=== PATIENT | female | born 1955 | race Caucasian/White ===

== ENCOUNTER 2017-11-15 11:53 | Inpatient (IN) | payer OTHER ==
[~2017-11-15] VITALS: Ht 167.6 cm; Wt 46.3 kg
--- NOTE | 2017-11-15 13:20 | ED UPPER/LOWER EXTREMITY COMPL ---
History of Present Illness General Chief Complaint: Shoulder Injury Stated Complaint: L SHOULDER INJURY S/P FALL XTHIS AM Source: patient, family Exam Limitations: no limitations Vital Signs & Intake/Output Vital Signs & Intake/Output Vital Signs Date Time Temp Pulse Resp B/P B/P Pulse O2 O2 Flow FiO2 Mean Ox Delivery Rate 11/15 1528 98.7 66 18 171/94 98 Room Air 11/15 1200 97.0 64 18 169/92 98 Room Air Allergies Uncoded Allergies: CT IODINE CONTRAST (HIVES 11/15/17) Reconcile Medications Alprazolam 0.5 MG TABLET 1 TAB PO BIDP PRN ANXIETY (Reported) Lisinopril 40 MG TABLET 1 TAB PO DAILY HEART (Reported) Metoprolol Tartrate 25 MG TABLET 1 TAB PO BID HEART (Reported) Zolpidem Tartrate 10 MG TABLET 1 TAB PO QPM SLEEP (Reported) Triage Note: PT TO ED C/O LEFT SHOULDER/HUMERAL PAIN S/P "BLACKING OUT" THIS AM. PT REQUESTING ETOH DETOX. DENIES SI/HI. STATES DRINKS 1 PINT OF VODKA DAILY. HAS BEEN DRINKING AT THAT RATE FOR "QUITE A WHILE" :YEARS. LAST DRINK WAS YESTERDAY EARLY AFTERNOON. STATES STOPPED "RECENTLY" BUT IT DIDN'T LAST LONG. PER SPOUSE THIS WAS IN MAY 2013, HAD 21 DAYS SOBER. Triage Nurses Notes Reviewed? yes Onset: Abrupt Duration: constant Timing: single episode today Severity: severe Severity Numbers: 7 Method of Injury: direct blow, fall HPI: Patient is a 62-year-old male with a past medical history of remote gastric/ stomach cancer and MULTIPLE recurrence of lung cancer currently patient is receiving infusions of Avastin, alcohol dependency and osteoporosis, who presents emergency room stating that yesterday evening patient after drinking alcohol approximately 1 pint she states that approximately 3 AM patient got up from the bed to use the restroom where then she fell to the ground however patient does not recall how she fell OR WHAT EXACTLY HAPPENED TO MAKE PT FALL, BUT she had acute onset of left lateral shoulder pain FROM THE EVENT. Patient is unsure whether or not she hit her head denies any current neck pain or back pain however complains of left lateral shoulder and upper arm pain and swelling with bruising. The who is present states that she did not Past History Travel History Traveled to [place] past 21 day No Medical History Any Pertinent Medical History? see below for history Neurological: NONE EENT: NONE Cardiovascular: NONE Respiratory: NONE Gastrointestinal: NONE Hepatic: NONE Renal: NONE Musculoskeletal: osteoporosis Psychiatric: alcohol dependence Cancer(s): lung cancer, GASTRIC LYMPHOMA Surgical History Surgical History: non-contributory Psychosocial History What is your primary language Occitan Tobacco Use: Quit >30 days ago ETOH Use: alcoholic Illicit Drug Use: denies illicit drug use Family History Hx Contributory? No Review of Systems Review of Systems Constitutional: Reports: no symptoms. EENTM: Reports: no symptoms. Respiratory: Reports: no symptoms. Cardiovascular: Reports: no symptoms. Gastrointestinal/Abdominal: Reports: no symptoms. Genitourinary: Reports: no symptoms. Musculoskeletal: Reports: see HPI. Skin: Reports: see HPI. Neurological/Psychological: Reports: no symptoms. Hematologic/Endocrine: Reports: no symptoms. Immunological: Reports: no symptoms. All Other Systems: Reviewed and Negative Physical Exam Physical Exam General Appearance: no apparent distress, alert, comfortable Head: atraumatic Eyes: Bilateral: normal appearance, PERRL, EOMI. Ears, Nose, Throat: normal pharynx, normal ENT inspection, hearing grossly normal Neck: normal inspection, supple, no midline tenderness Cardiovascular/Respiratory: normal breath sounds, normal peripheral pulses, regular rate/rhythm, no respiratory distress Peripheral Pulses: 2+ dorsalis pedis (R), 2+ dorsalis pedis (L) Gastrointestinal: NONTENDER ABDOMEN Back: normal inspection Neurologic/Tendon: normal sensation, normal motor functions, normal tendon functions, responds to pain, no evidence tendon injury, no pulse deficit Skin: intact Diagram Shoulders Front/Back 1) 2) Noted point tenderness ecchymosis and swelling skin intact Nontender elbow Nontender wrist Dermatomes intact Progress Differential Diagnosis: arterial insufficiency, compartment syndrome, contusion, dislocation, DVT, fracture, septic arthritis, sprain, tendon injury Plan of Care: Orders Procedure Date/time Status Regular Diet 11/16 B Active Regular Diet 11/15 D Complete Misc Message 11/15 1708 Active ED Holding Orders 11/15 1708 Active Admit to inpatient 11/15 1708 Active Vital Signs 11/15 1708 Active Code Status 11/15 1708 Active Patient Data 11/15 1657 Active Add-on Test (ER Only) 11/15 1645 Active CIWA 11/15 1645 Active Add-on Test (ER Only) 11/15 1518 Active MAGNESIUM 11/15 1502 Complete ETHANOL 11/15 1502 Complete COMPREHENSIVE METABOLIC PANEL 11/15 1424 Complete CBC WITHOUT DIFFERENTIAL 11/15 1424 Complete EKG 11/15 1424 Active Durable Medical Equipment 11/15 1157 Active Laboratory Tests 11/15/17 1502: Anion Gap 13, Estimated GFR > 60, BUN/Creatinine Ratio 35.0 H, Glucose 109 H, Calcium 8.7, Magnesium 1.8, Total Bilirubin 1.3, AST 76 H, ALT 52, Alkaline Phosphatase 96, Total Protein 7.1, Albumin 3.9, Globulin 3.2, Albumin/Globulin Ratio 1.2, CBC w Diff MAN DIFF ORDERED, RBC 3.40 L, MCV 101.6 H, MCH 34.6 H, RDW 15.8 H, MPV 8.1, Gran % 73.5, Lymphocytes % 16.0 L, Monocytes % 10.5 H, Eosinophils % 0, Basophils % 0, Absolute Granulocytes 4.3, Segmented Neutrophils 82 H, Absolute Lymphocytes 0.9 L, Lymphocytes 9 L, Monocytes 9, Absolute Monocytes 0.6, Absolute Eosinophils 0, Absolute Basophils 0, Nucleated RBCs 1 H , Platelet Estimate ADEQUATE, Normochromic RBCs VERIFIED, Macrocytic Cells 1+, PUBS MCHC 34.1, Serum Alcohol < 10.0 11/15/17 1427: Troponin I Cancelled Differential diagnosis includes local dependency electrolyte abnormality pancreatitis Patient has no central spinous tenderness CT scan of head and cervical spine are unremarkable patient does have noted left comminuted humeral fracture in which initially on arrival patient had a left shoulder immobilizer placed pre-and post -neurovascular was intact, patient however hasn't unknown etiology of fall and suspecting syncopal episode in which it is noted the patient does have hyponatremia at 127 Patient will be advised to be admitted for concerns of hyponatremia, SUSPECTNG SYNCOPAL/LOC episode, alcohol dependency and left comminuted humeral fracture Patient also requires close monitoring of alcohol dependency no history of delirium tremens or alcohol withdrawal seizures Discussed disposition plan with patient and family who agree Diagnostic Imaging: Viewed by Me: Radiology Read. Radiology Impression: acute abnormality, fracture Initial ED EKG: NSR 65 BPM Comments: PATIENT: LUISA IQBAL PRESENT AGE: 62 PATIENT ACCOUNT NO: [id number] : 53 LOCATION: ER ORDERING PHYSICIAN: Tani MANN SERVICE DATE: 11/15/17 EXAM TYPE: CAT - CT CERV SPINE WO IV CONTRAST; CT HEAD WO IV CONTRAST CT HEAD WITHOUT IV CONTRAST CT CERVICAL SPINE WITHOUT IV CONTRAST INDICATION: Fall. Possible alcohol. COMPARISON: None available. TECHNIQUE: Multidetector CT acquisitions of the head and cervical spine were obtained without IV contrast. Multiplanar reformats were acquired and utilized for image interpretation. FINDINGS: HEAD: Mild chronic microangiopathy and global cerebral volume loss. There is no intracranial hemorrhage, hydrocephalus, extra-axial surface collection, midline shift, or other herniation pattern. Seay to white matter differentiation is diffusely maintained without evidence of an evolved acute territorial infarct. The basilar cisterns are preserved. No significant soft tissue abnormality. No acute osseous abnormality. The paranasal sinuses and the mastoid air cells are well-aerated. CERVICAL SPINE: There is anatomic alignment of the vertebral bodies and posterior elements. There is no acute fracture and there is no acute subluxation. There is moderate to severe disc volume loss with endplate osteophytosis at C4-C5 and C5-C6 and there is mild to moderate disc volume loss at C6-C7. Uncovertebral joint hypertrophy and hypertrophic facet arthropathy result in moderate to severe bilateral foraminal stenosis at all these levels. The craniocervical and atlantoaxial articulations are normal. There is no prevertebral soft tissue swelling. There is a 7 mm calcification within the right thyroid lobe. Opacity at the right greater than left lung apex, most likely pleural parenchymal scarring. IMPRESSION: 1. No acute intracranial abnormality. Mild chronic microangiopathy and global cerebral volume loss. 2. No acute osseous abnormality within the cervical spine. Cervical spondylosis as described. DICTATED BY: Cruz Melton MD DATE/TIME DICTATED:11/15/171451 PATIENT: LUISA IQBAL PRESENT AGE: 62 PATIENT ACCOUNT NO: [id number] : 53 LOCATION: [facility] ORDERING PHYSICIAN: Cruz Enriquez MD SERVICE DATE: 11/15/17120 EXAM TYPE: RAD - XRY-SHOULDER COMPLETE-LEFT EXAMINATION: XR SHOULDER, LEFT CLINICAL INFORMATION: Left shoulder pain with movement. Status post fall. Evaluate for left shoulder fracture. COMPARISON: None TECHNIQUE: AP, Grashey, and scapular Y views of the left shoulder. FINDINGS: There is a comminuted fracture of the left proximal humerus which predominantly involves the surgical neck with probable extension to the greater tuberosity. There is mild medial and moderate anterior displacement of the major distal fracture fragment. There is a small butterfly fragment which is medially displaced. There is no definite dislocation but views are limited. IMPRESSION: Comminuted fracture of the left proximal humerus with displacement as described above. DICTATED BY: Jordon Yusuf MD Departure Departure Disposition: STILL A PATIENT Condition: Stable Clinical Impression Primary Impression: Hyponatremia Secondary Impressions: Alcohol dependence, Fall, Proximal humeral fracture, Syncope Referrals: Betty HOLLIDAY,Manuel Polanco (PCP/Family) Departure Forms: Customer Survey General Discharge Information Admission Note Spoke With: Elvie Barksdale MD Documentation of Exam: Documentation of any treatments & extenuating circumstances including Concerns Regarding Discharge (functional status, medication knowledge or non-compliance, living conditions, etc.) that warrant an admission rather than observation: [ Discussed patient with who agrees with telemetry admission for concerns of hyponatremia suspecting loss of consciousness or syncopal episode patient requires pain management with orthopedic consultation repeat labs telemetry monitoring establishing her etiology of hyponatremia possible fluid replenishment or restriction, and alcohol withdrawal monitor] Critical Care Note Critical Care Note Critical Care Time: 30-74 min
--- NOTE | 2017-11-15 13:36 | RADIOLOGY REPORT ---
EXAMINATION: XR SHOULDER, LEFT CLINICAL INFORMATION: Left shoulder pain with movement. Status post fall. Evaluate for left shoulder fracture. COMPARISON: None TECHNIQUE: AP, Grashey, and scapular Y views of the left shoulder. FINDINGS: There is a comminuted fracture of the left proximal humerus which predominantly involves the surgical neck with probable extension to the greater tuberosity. There is mild medial and moderate anterior displacement of the major distal fracture fragment. There is a small butterfly fragment which is medially displaced. There is no definite dislocation but views are limited. IMPRESSION: Comminuted fracture of the left proximal humerus with displacement as described above.
[2017-11-15] MEDS ORDERED: LISINOPRIL40 M1 PO (14:55)
[2017-11-15] MEDS ORDERED: METOPROLOL TART25 M1 PO (14:56)
[2017-11-15] MEDS ORDERED: ZOLPIDEM TARTRA10 M1 PO (14:56)
[2017-11-15] MEDS ORDERED: ALPRAZOLAM0.5 M4 PO (14:56)
--- NOTE | 2017-11-15 15:09 | CT SCAN REPORT ---
CT HEAD WITHOUT IV CONTRAST CT CERVICAL SPINE WITHOUT IV CONTRAST INDICATION: Fall. Possible alcohol. COMPARISON: None available. TECHNIQUE: Multidetector CT acquisitions of the head and cervical spine were obtained without IV contrast. Multiplanar reformats were acquired and utilized for image interpretation. FINDINGS: HEAD: Mild chronic microangiopathy and global cerebral volume loss. There is no intracranial hemorrhage, hydrocephalus, extra-axial surface collection, midline shift, or other herniation pattern. Seay to white matter differentiation is diffusely maintained without evidence of an evolved acute territorial infarct. The basilar cisterns are preserved. No significant soft tissue abnormality. No acute osseous abnormality. The paranasal sinuses and the mastoid air cells are well-aerated. CERVICAL SPINE: There is anatomic alignment of the vertebral bodies and posterior elements. There is no acute fracture and there is no acute subluxation. There is moderate to severe disc volume loss with endplate osteophytosis at C4-C5 and C5-C6 and there is mild to moderate disc volume loss at C6-C7. Uncovertebral joint hypertrophy and hypertrophic facet arthropathy result in moderate to severe bilateral foraminal stenosis at all these levels. The craniocervical and atlantoaxial articulations are normal. There is no prevertebral soft tissue swelling. There is a 7 mm calcification within the right thyroid lobe. Opacity at the right greater than left lung apex, most likely pleural parenchymal scarring. IMPRESSION: 1. No acute intracranial abnormality. Mild chronic microangiopathy and global cerebral volume loss. 2. No acute osseous abnormality within the cervical spine. Cervical spondylosis as described.
[2017-11-15 15:16] LABS: ABSOLUTE BASOPHIL COUNT 0 /CUMM (0.0-0.2); ABSOLUTE EOSINOPHIL COUNT 0 /CUMM (0.0-0.7); ABSOLUTE GRANULOCYTE CT 4.3 /CUMM (1.4-6.5); ABSOLUTE LYMPH COUNT 0.9 /CUMM (1.2-3.4); ABSOLUTE MONOCYTE COUNT 0.6 /CUMM (0.10-0.60); BASOPHIL % 0 % (0.0-2.0); EOSINOPHIL % 0 % (0-5); GRANULOCYTE % 73.5 % (42.2-75.2); HEMATOCRIT 34.6 % (37-47); MEAN CORPUSCULAR HGB 34.6 PG (27.0-31.0); MEAN CORPUSCULAR HGB CONC 34.1 G/DL (33.0-37.0); MEAN CORPUSCULAR VOLUME 101.6 FL (81.0-99.0); MEAN PLATELET VOLUME 8.1 FL (7.4-10.4); PLATELET COUNT 311 /CUMM (130-400); RBC DISTRIBUTION WIDTH 15.8 % (11.5-14.5); WHITE BLOOD CELL COUNT 5.8 /CUMM (4.8-10.8)
[2017-11-15 17:20] VITALS: BP 154/84
--- NOTE | 2017-11-15 18:16 | History & Physical ---
See Addendum Christian HOLLIDAY,Emily 11/15/17 1281: General Information and HPI MD Statement: I have seen and personally examined LUISA IQBAL and documented this H&P. The patient is a 62 year old F who presented with a patient stated chief complaint of [fall]. Source of Information: patient Exam Limitations: no limitations History of Present Illness: The patient is a 62-year-old female with past medical history of gastric lymphoma status post partial gastrectomy, recurrent lung cancer on Avastin, alcoholism and osteoporosis. The patient presented to [facility] on 11/15 with complaint of fall. Patient was in usual state of health until this morning when she suffered a fall around 3 AM in the morning while going to the restroom. As per patient she lost consciousness for a few seconds and everything became dark. She was little bit confused after the episode but became oriented little later. She did not hit her head she landed on her left shoulder. There was no seizure-like activity. No bowel or urinary incontinence. No tongue bite. Patient did not experience any chest pain or palpitations or any other prodromal symptoms. Of note patient has been battling alcoholism and has been to rehabilitation multiple times, last visit was 3 years ago for 3 weeks. Patient admits to drinking 1 pint of vodka everyday. Patient started drinking yesterday early afternoonand continued into the evening. She has never been hospitalized for alcohol withdrawal, never experienced delirium tremors or intubation. Currently patient is complaining of 9 out of 10 pain in left shoulder and arm, sharp on movement and dull at rest pain. It's a constant pain that is aggravated by movement motion and relieved by staying still. Nonradiating. Patient tried ibuprofen 3 x 200 mg which did not help much. Of note patient suffered a fall 5 weeks ago after tripping over a rug at night while going to the bathroom and had fracture of L1. Patient has history of osteoporosis has tried Phosphmax which she discontinued because of nausea and headaches. Currently she is considering IV prolia for osteoporosis and is being treated by her oncologist Dr.Anamika nunez in [place]. Current status of her lung cancer is stable as per patient, she is taking Avastin for lung cancer. Lisinopril and metoprolol because of hypertension caused by it. She is also on vitamin D and calcium supplementation. Review of system is positive of decrease in appetite. She also reports blurriness of vision and headaches every now and then. Denies fevers chills or urinary complaints and change in bowel habits. Allergies/Medications Allergies: Uncoded Allergies: CT IODINE CONTRAST (HIVES 11/15/17) Home Med list Alprazolam 0.5 MG TABLET 1 TAB PO BIDP PRN ANXIETY (Reported) Lisinopril 40 MG TABLET 1 TAB PO DAILY HEART (Reported) Metoprolol Tartrate 25 MG TABLET 1 TAB PO BID HEART (Reported) Multivitamin (Daily Multiple Vitamin) 1 EACH TABLET 1 TAB PO DAILY alcohol abuse he Oxycodone HCl/Acetaminophen (Percocet 5-325 MG Tablet) 5 MG-325 MG TABLET 1 TAB PO Q4 PRN PAIN SCALE 7-10 (SEVERE) Zolpidem Tartrate 10 MG TABLET 1 TAB PO QPM SLEEP (Reported) Past History Travel History Traveled to [place] past 21 day No Medical History Neurological: NONE EENT: NONE Cardiovascular: NONE Respiratory: NONE Gastrointestinal: NONE Hepatic: NONE Renal: NONE Musculoskeletal: osteoporosis Psychiatric: alcohol dependence Cancer(s): lung cancer, GASTRIC LYMPHOMA Surgical History Surgical History: s/p partial gastrectomy Past Family/Social History Family History Relations & Conditions if any *No pertinent family history Relation not specified Psychosocial History Where do you live? Home Who Do You Live With? spouse Smoking Status: Former Smoker ETOH Use: alcoholic Illicit Drug Use: denies illicit drug use Functional Ability ADLs Independent: dressing, eating, toileting, bathing. Ambulation: independent IADLs Independent: shopping, housework, finances, food prep, telephone, transportation , medication admin. Employment History Employment Employed Review of Systems Review of Systems Constitutional: Reports: see HPI. EENTM: Reports: no symptoms. Cardiovascular: Reports: no symptoms. Respiratory: Reports: no symptoms. GI: Reports: no symptoms. Genitourinary: Reports: no symptoms. Skin: Reports: no symptoms. Exam & Diagnostic Data Last 24 Hrs of Vital Signs/I&O Vital Signs Date Time Temp Pulse Resp B/P B/P Pulse O2 O2 Flow FiO2 Mean Ox Delivery Rate 11/15 1830 98.2 68 18 160/92 11/15 1828 98.2 68 18 160/92 99 Room Air 11/15 1720 98.2 71 18 154/84 11/15 1718 98.2 71 18 154/84 98 Room Air 11/15 1528 98.7 66 18 171/94 98 Room Air 11/15 1200 97.0 64 18 169/92 98 Room Air Intake & Output 11/15 1600 11/15 0800 11/15 0000 Intake Total 0 Output Total Balance 0 Intake, Oral 0 Patient 102 lb Weight Weight Reported by Patient Measurement Method Physical Exam General Appearance Alert, Oriented X3, Cooperative Skin No Rashes Skin Temp/Moisture Exam: Cool/Dry HEENT Atraumatic, PERRLA, EOMI, Mucous Membr. moist/pink Neck Supple, No JVD, No thryomegaly, No LAD Lymphatic Cervical nl Cardiovascular Normal S1, Normal S2, No Murmurs, Gallops Lungs Clear to Auscultation, Normal Air Movement Abdomen Normal Bowel Sounds, Soft, No Tenderness, No Hepatospenomegaly, No Masses Neurological Normal Speech, Strength at 5/5 X4 Ext, Normal Tone, Sensation Intact, Cranial Nerves 3-12 NL, Reflexes 2+, mild nasolabial flattening on left side, as per pt chronic Extremities No Clubbing, No Cyanosis, No Edema, Normal Pulses, No Tenderness/ Swelling Body Front and Back (Adult) 1) large bruise Last 24 Hrs of Labs/[place]: Laboratory Tests 11/15/17 1502: Anion Gap 13, Estimated GFR > 60, BUN/Creatinine Ratio 35.0 H, Glucose 109 H, Serum Osmolality 264 L, Calcium 8.7, Magnesium 1.8, Total Bilirubin 1.3, AST 76 H, ALT 52, Alkaline Phosphatase 96, Total Protein 7.1, Albumin 3.9, Globulin 3.2, Albumin/Globulin Ratio 1.2, CBC w Diff MAN DIFF ORDERED, RBC 3.40 L, MCV 101.6 H, MCH 34.6 H, RDW 15.8 H, MPV 8.1, Gran % 73.5, Lymphocytes % 16.0 L, Monocytes % 10.5 H, Eosinophils % 0, Basophils % 0, Absolute Granulocytes 4.3, Segmented Neutrophils 82 H, Absolute Lymphocytes 0.9 L, Lymphocytes 9 L, Monocytes 9, Absolute Monocytes 0.6, Absolute Eosinophils 0, Absolute Basophils 0, Nucleated RBCs 1 H, Platelet Estimate ADEQUATE, Normochromic RBCs VERIFIED, Macrocytic Cells 1+, PUBS MCHC 34.1, Serum Alcohol < 10.0 11/15/17 1427: Troponin I Cancelled Diagnostic Data Other Results XR SHOULDER, LEFT IMPRESSION: Comminuted fracture of the left proximal humerus with displacement CT HEAD WITHOUT IV CONTRAST CT CERVICAL SPINE WITHOUT IV CONTRAST IMPRESSION: 1. No acute intracranial abnormality. Mild chronic microangiopathy and global cerebral volume loss. 2. No acute osseous abnormality within the cervical spine. Cervical spondylosis as described. Assessment/Plan Assessment: The patient is a 62-year-old female with past medical history of gastric lymphoma status post partial gastrectomy, recurrent lung cancer on Avastin, alcoholism and osteoporosis. The patient presented to [facility] on 11/15 with complaint of fall. -VS at presentation 97, 64, 18, 169/92, 98% on room air -Pertinent labs H/H 11.8/34.6, MCV 101, sodium 127, AST 76. Rest of LFTs WNL, K and Mg WNL, serum alcohol level less than 10 -For imaging results see above The patient is being admitted to telemetry floor and is being treated and evaluated for following conditions #Witnessed Fall due to syncopal episode Possible differentials include secondary to alcoholism, metabolic encephalopathy secondary to hyponatremia, orthostatic or cardiogenic. There is possibility of remote CVA considering mild nasolabial flattening on the left side as per patient it is chronic. Rest of the neurological examination is within normal limits. CT head negative. -Continuous telemetry monitoring for any arrhythmia -Check orthostatics -Echocardiogram to check for any structural heart abnormalities -Cardiology consult #Comminuted fracture of the left proximal humerus with displacement secondary to fall Currently in a sling, large bruise on left side. Pulses present. -Ortho consult placed with Dr. Velasquez office -Pain pathway -Monitor for increasing swelling and presence of pulses. (Compartment syndrome) #Chronic alcohol abuse Patient admits drinking alcohol 1 pint vodka daily. Last drink was yesterday evening. -Ativan per [facility] protocol -Thaimine/foltate/B12 -attraction worker consult #Hyponatremia likely secondary to chronic alcohol abuse Can be cause of metabolic encephlopathy -Fluid restriction and alcohol abstinence -Avoid hypotonic fluids -Monitor BEP -Avoid overcorrection, maximum rate of correction should be 8 mEq/L in 24-hour #Megaloblastic anemia likely secondary to chronic alcohol abuse Patient is presenting with increased MCV -Counseling on alcohol abstinence -Check folate and B12 levels #Hypertension likely secondary to Avastin use. Patient has been complaining of headaches and blurriness of vision which can be attributed to that as well. -Continue metoprolol and lisinopril at home doses. #Regular diet/ ALPS and Lovenox/FC As Ranked By This Provider Problem List: 1. Alcohol dependence 2. Proximal humeral fracture 3. Syncope 4. Fall 5. Hyponatremia Core Measures/Misc (07/21) Acute Coronary Syndrome ACS Diagnosis: No Congestive Heart Failure Congestive Heart Failure Diagnosis No Cerebrovascular Accident CVA/TIA Diagnosis: No VTE (View Protocol) VTE Risk Factors Age>40 No Mechanical VTE Prophylaxis d/t N/A MechProphylax Ordered No VTE Pharm Prophylaxis d/t NA PharmProphylax ordered Sepsis (View protocol) Sepsis Present: No Elvie Barksdale MD 11/15/172111: Attending MD Review Statement Attending Statement Attending MD Statement: examined this patient, discuss w/resident/PA/RN FIELD, agreed w/resident/PA/RN FIELD, reviewed EMR data (avail) Attending Assessment/Plan: Gentle IV hydration, pain control, ortho consult, monitor sodium, continue home medications. Would benefit from heavy threader consult. [facility]172127: Resident Review Statement Resident Statement: examined this patient, discussed with marketing summer intern, agreed with marketing summer intern, discussed with family, reviewed images Other Findings: Patient is 62 year old female with past medical history significant for gastric lymphoma status post gastric bypass, lung cancer on that admission currently on Avastin, osteoporosis, alcohol dependence, hypertension who presented to ED with chief complain of weakness fall and severe left shoulder pain. Patient reported previous history of fall 5 weeks ago where she had compression fracture of L1 however didn't seek any medical attention at that time and doesn' t complain of pain. Patient denied any weakness, numbness, headaches, blurry vision. She doesn't remember exactly how the fall happened but it was dark, she felt a little bit drowsy and fell down, was out of consciousness for a few seconds, regained consciousness however was disoriented for a couple of minutes, denied any convulsion, stool or urinary incontinence, didn't hit her head. Problem list #Syncopal attack #Left shoulder comminuted fracture with mild medial and moderate anterior displacement of major distal fracture fragment #Hyponatremia #Hypertension #Alcohol dependence #Osteoporosis Plan -Admit to telemetry for cardiac monitoring -Vital signs every shift -Orthostatic vitals -Cardiac consultation in a.m. -Orthopedic consultation was obtained Andrea Velasquez MD, no plans for intervention inpatient, we'll follow with him as an outpatien -We will give one bag of normal saline 75 mL/h and monitor sodium closely -Continue blood pressure medication lisinopril 40 daily and metoprolol titrate 25 mg twice a day -Ativan 1 mg every when necessary per CIWA score -Vitamin D for calcium, obtain vitamin D level in a.m. patient is not on aldronate because of side effects, waiting for insurance approval for another medication -Pain management -DVT prophylaxis Lovenox -Code full -Heart healthy diet -Orthopedic consultation was placed, no plans for intervention
[2017-11-15 18:30] VITALS: BP 160/92
[2017-11-15 22:00] VITALS: BP 158/86
[2017-11-16] VITALS (8 sets, daily range): BP systolic 136–178; BP diastolic 70–90
--- NOTE | 2017-11-16 06:05 | PN- Housestaff ---
See Addendum Subjective Follow-up For: Syncope Fall Left shoulder comminuted fracture Subjective: Patient was seen and examined this morning, vitals stable, pain controlled, no new complaint. Review of Systems Constitutional: Reports: see HPI. Objective Last 24 Hrs of Vital Signs/I&O Vital Signs Date Time Temp Pulse Resp B/P B/P Pulse O2 O2 Flow FiO2 Mean Ox Delivery Rate 11/15 2247 71 158/70 11/15 2200 98.0 65 20 158/86 96 11/15 202 Room Air 11/15 1830 98.2 68 18 160/92 11/15 1828 98.2 68 18 160/92 99 Room Air 11/15 1720 98.2 71 18 154/84 11/15 1718 98.2 71 18 154/84 98 Room Air 11/15 1528 98.7 66 18 171/94 98 Room Air 11/15 1200 97.0 64 18 169/92 98 Room Air Intake & Output 11/16 0800 11/16 0000 11/15 1600 Intake Total 700 500 0 Output Total Balance 700 500 0 Intake, IV 600 150 Intake, Oral 100 350 0 Patient 46.266 kg 46.266 kg Weight Weight Reported by Patient Reported by Patient Measurement Method Physical Exam General Appearance: Alert, Oriented X3, Cooperative, No Acute Distress Skin: bruse over left shoulder HEENT: Atraumatic, PERRLA, EOMI, Mucous Membr. moist/pink Neck: Supple, No JVD Cardiovascular: Regular Rate, Normal S1, Normal S2, No Murmurs Lungs: Clear to Auscultation, Normal Air Movement Abdomen: Normal Bowel Sounds, Soft, No Tenderness Neurological: Normal Speech, Strength at 5/5 X4 Ext, Normal Tone, Sensation Intact, Cranial Nerves 3-12 NL, Reflexes 2+ Extremities: No Clubbing, No Cyanosis, No Edema, Normal Pulses, left radial and brachial pulses are intact Assessment/Plan Assessment: Patient is 62 year old female with past medical history significant for gastric lymphoma status post gastric bypass, lung cancer on that admission currently on Avastin, osteoporosis, alcohol dependence, hypertension who presented to ED with chief complain of weakness fall and severe left shoulder pain. Left shoulder x ray FINDINGS: There is a comminuted fracture of the left proximal humerus which predominantly involves the surgical neck with probable extension to the greater tuberosity. There is mild medial and moderate anterior displacement of the major distal fracture fragment. There is a small butterfly fragment which is medially displaced. There is no definite dislocation but views are limited. Problem list #Syncopal attack #Left shoulder comminuted fracture with mild medial and moderate anterior displacement of major distal fracture fragment #Hyponatremia #Hypertension #Alcohol dependence #Osteoporosis Plan -Orthopedic consultation was obtained Andrea Velasquez MD, no plans for intervention inpatient, we'll follow with him as an outpatien -Orthostatic vitals pending -Cardiac consultation to be placed in am -BEP for sodium is pending--patient received one bag of normal saline 75 mL/h -Continue blood pressure medication lisinopril 40 daily and metoprolol titrate 25 mg twice a day -Ativan 1 mg every when necessary per CIWA score---CIWA max 2 -Vitamin D for calcium, obtain vitamin D level in a.m. patient is not on aldronate because of side effects, waiting for insurance approval for another medication -Pain management -DVT prophylaxis Lovenox -Code full -Heart healthy diet Problem List: 1. Proximal humeral fracture 2. Alcohol dependence 3. Syncope 4. Fall 5. Hyponatremia Pain Ratin Pain Location: Left shoulder Pain Goal: Pain 4 or less Pain Plan: See medication Tomorrow's Labs & Rationales: CBC BMP
[2017-11-16 09:11] LABS: ABSOLUTE BASOPHIL COUNT 0 /CUMM (0.0-0.2); ABSOLUTE EOSINOPHIL COUNT 0 /CUMM (0.0-0.7); ABSOLUTE GRANULOCYTE CT 2.8 /CUMM (1.4-6.5); ABSOLUTE LYMPH COUNT 1.5 /CUMM (1.2-3.4); ABSOLUTE MONOCYTE COUNT 0.4 /CUMM (0.10-0.60); BASOPHIL % 0.4 % (0.0-2.0); EOSINOPHIL % 0.7 % (0-5); GRANULOCYTE % 57.6 % (42.2-75.2); HEMATOCRIT 32.7 % (37-47); MEAN CORPUSCULAR HGB 34.8 PG (27.0-31.0); MEAN CORPUSCULAR HGB CONC 33.3 G/DL (33.0-37.0); MEAN CORPUSCULAR VOLUME 104.4 FL (81.0-99.0); MEAN PLATELET VOLUME 9.1 FL (7.4-10.4); PLATELET COUNT 288 /CUMM (130-400); RBC DISTRIBUTION WIDTH 16.3 % (11.5-14.5); RED BLOOD CELL CT 3.13 /CUMM (4.20-5.40); WHITE BLOOD CELL COUNT 4.8 /CUMM (4.8-10.8)
--- NOTE | 2017-11-16 17:23 | Cons- Cardiology ---
General Information and HPI Consulting Request Date of Consult: 11/16/17 Requested By: Elvie Barksdale MD Reason for Consult: syncope Source of Information: patient, family Exam Limitations: no limitations History of Present Illness: the patient is a 62-year-old female who is followed by Dr. Hernández in [place]. The patient's past medical history is Mau for gastric lymphoma, status post partial gastrectomy, history of lung cancer, prior alcoholism, osteoporosis, etc. The patient was admitted to the hospital on 11/15 via the emergency room after a fall at home. Patient and her note that the patient german around 3 AM to go to the bathroom. Shortly after rising, she apparently became lightheaded, and fell to the floor. Her heard her fall and noted her to be unresponsive. There was no head trauma. The patient landed on her left shoulder with a resultant fracture. the patient denies any significant known cardiac history. She has not had prior syncope as far as I can tell. There was no evidence of seizure activity per the . Allergies/Medications Allergies: Uncoded Allergies: CT IODINE CONTRAST (HIVES 11/15/17) Home Med List: Alprazolam 0.5 MG TABLET 1 TAB PO BIDP PRN ANXIETY (Reported) Lisinopril 40 MG TABLET 1 TAB PO DAILY HEART (Reported) Metoprolol Tartrate 25 MG TABLET 1 TAB PO BID HEART (Reported) Multivitamin (Daily Multiple Vitamin) 1 EACH TABLET 1 TAB PO DAILY alcohol abuse he Oxycodone HCl/Acetaminophen (Percocet 5-325 MG Tablet) 5 MG-325 MG TABLET 1 TAB PO Q4 PRN PAIN SCALE 7-10 (SEVERE) Zolpidem Tartrate 10 MG TABLET 1 TAB PO QPM SLEEP (Reported) Current Medications: Current Medications Sig/Aminata Start time Last Medication Dose Route Stop Time Status Admin Acetaminophen 700 MG Q6P PRN 11/15 1830 AC 11/15 N/A 1 UNIT IV 2022 Cholecalciferol 1,000 IU DAILY 11/16 1000 AC 11/16 PO 0915 Enoxaparin Sodium 40 MG 2200 11/16 2200 AC SC Heparin Sodium 5,000 UNIT Q8 11/15 2200 CAN (Porcine) SC Lisinopril 40 MG DAILY 11/16 1000 AC 11/16 PO 0915 Lorazepam 0 Q1P PRN 11/15 1900 AC IV Metoprolol Tartrate 25 MG BID 11/15 2199 AC 11/16 PO 0915 Oxycodone/ 0 .STK-MED ONE 11/15 183 DC Acetaminophen PO Oxycodone/ 1 TAB Q4 PRN 11/15 183 AC 11/16 Acetaminophen PO 1357 Potassium Chloride 40 MEQ BID 11/16 2199 AC PO 11/17 1001 Sodium Chloride 1,000 ML ONCE ONE 11/15 1945 DC 11/15 IV 11/16 Past History Travel History Traveled to [place] past 21 day No Medical History Blood Transfusion Hx: Yes Neurological: NONE EENT: allergies Cardiovascular: hypertension Respiratory: LUNG CA Gastrointestinal: GASTRIC CA Hepatic: NONE Renal: NONE Musculoskeletal: osteoporosis Psychiatric: alcohol dependence, anxiety Endocrine: osteoporosis Blood Disorders: NONE Cancer(s): lung cancer, GASTRIC LYMPHOMA 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 Home Who Do You Live With? spouse Services at Home: NONE Smoking Status: Former Smoker ETOH Use: alcoholic Illicit Drug Use: denies illicit drug use Functional Ability ADLs Independent: dressing, eating, toileting, bathing. Ambulation: independent IADLs Independent: shopping, housework, finances, food prep, telephone, transportation , medication admin. Employment History Employment: Employed Exam & Diagnostic Data Vital Signs and I&O Vital Signs Date Time Temp Pulse Resp B/P B/P Pulse O2 O2 Flow FiO2 Mean Ox Delivery Rate 11/16 1600 98.3 66 20 138/90 11/16 1443 98.3 66 20 138/90 97 Room Air 11/16 1400 67 20 11/16 1200 67 18 11/16 1000 98.2 68 18 178/90 11/16 0915 74 178/90 11/16 0915 74 178/90 11/16 0913 74 178/90 11/16 0848 98.2 68 20 136/78 97 Room Air 11/16 0800 Room Air 11/16 0800 98.2 74 20 178/90 11/15 2247 71 158/70 11/15 2200 98.0 65 20 158/86 96 11/156 Room Air 11/15 1830 98.2 68 18 160/92 11/15 1828 98.2 68 18 160/92 99 Room Air Intake & Output 11/16 1600 11/16 0800 11/16 0000 11/15 1600 11/15 0800 11/15 0000 Intake Total 690 700 500 0 Output Total 500 Balance 190 700 500 0 Intake, IV 150 600 150 Intake, Oral 540 100 350 0 Output, Urine 500 Patient 102 lb 102 lb Weight Weight Reported by Patient Reported by Patient Measurement Method Physical Exam: General Appearance Alert, Oriented X3, Cooperative Skinnormal HEENT Atraumatic, PERRLA, EOMI, Mucous Membr. moist/pink Neck Supple, No JVD, No thryomegaly, No LAD, carotids normal bilaterally with no bruits Lymphatic Cervical nl Cardiovascular Normal S1, Normal S2, 1/6 systolic murmur left sternal border Lungs Clear to Auscultationand percussion bilaterally Abdomen Normal Bowel Sounds, Soft, No Tenderness, No Hepatospenomegaly, No Masses Neurological Normal /nonfocal Extremities No Clubbing, No Cyanosis, No Edema, Normal Pulses,left arm in sling Labs/[place] Results: Laboratory Tests 11/16 11/15 0624 1502 Chemistry Sodium (137 - 145 mmol/L) 134 L 127 L Potassium (3.5 - 5.1 mmol/L) 3.2 L 3.6 Chloride (98 - 107 mmol/L) 94 L 89 L Carbon Dioxide (22 - 30 mmol/L) 24 25 Anion Gap (5 - 16) 15 13 BUN (7 - 17 mg/dL) 10 14 Creatinine (0.5 - 1.0 mg/dL) 0.4 L 0.4 L Estimated GFR (>60 ml/min) > 60 > 60 BUN/Creatinine Ratio (7 - 25 %) 25.0 35.0 H Glucose (65 - 99 mg/dL) 109 H Serum Osmolality (285 - 295 MOSM/KG) 264 L Calcium (8.4 - 10.2 mg/dL) 8.7 Magnesium (1.6 - 2.3 mg/dL) 1.8 Total Bilirubin (0.2 - 1.3 mg/dL) 1.3 AST (14 - 36 U/L) 76 H ALT (9 - 52 U/L) 52 Alkaline Phosphatase (<127 U/L) 96 Total Protein (6.3 - 8.2 g/dL) 7.1 Albumin (3.5 - 5.0 g/dL) 3.9 Globulin (1.9 - 4.2 gm/dL) 3.2 Albumin/Globulin Ratio (1.1 - 2.2 %) 1.2 25-OH Vitamin D Total (30 - 100 ng/ml) 23.0 L Hematology CBC w Diff NO MAN DIFF REQ MAN DIFF ORDERED WBC (4.8 - 10.8 /CUMM) 4.8 5.8 RBC (4.20 - 5.40 /CUMM) 3.13 L 3.40 L Hgb (12.0 - 16.0 G/DL) 10.9 L 11.8 L Hct (37 - 47 %) 32.7 L 34.6 L MCV (81.0 - 99.0 FL) 104.4 H 101.6 H MCH (27.0 - 31.0 PG) 34.8 H 34.6 H RDW (11.5 - 14.5 %) 16.3 H 15.8 H Plt Count (130 - 400 /CUMM) 288 311 MPV (7.4 - 10.4 FL) 9.1 8.1 Gran % (42.2 - 75.2 %) 57.6 73.5 Lymphocytes % (20.5 - 51.1 %) 32.3 16.0 L Monocytes % (1.7 - 9.3 %) 9.0 10.5 H Eosinophils % (0 - 5 %) 0.7 0 Basophils % (0.0 - 2.0 %) 0.4 0 Absolute Granulocytes (1.4 - 6.5 /CUMM) 2.8 4.3 Segmented Neutrophils (42.2 - 75.2 %) 82 H Absolute Lymphocytes (1.2 - 3.4 /CUMM) 1.5 0.9 L Lymphocytes (20.5 - 51.1 %) 9 L Monocytes (1.7 - 9.3 %) 9 Absolute Monocytes (0.10 - 0.60 /CUMM) 0.4 0.6 Absolute Eosinophils (0.0 - 0.7 /CUMM) 0 0 Absolute Basophils (0.0 - 0.2 /CUMM) 0 0 Nucleated RBCs (0.0 - 0.0 /100WBC) 1 H Platelet Estimate (ADEQUATE) ADEQUATE Normochromic RBCs VERIFIED Macrocytic Cells 1+ PUBS MCHC (33.0 - 37.0 G/DL) 33.3 34.1 Toxicology Serum Alcohol (<10 MG/DL) < 10.0 11/15 1427 Chemistry Troponin I Cancelled Diagnostic Data Other Results left shoulder x-ray: IMPRESSION: Comminuted fracture of the left proximal humerus with displacement as described above. Assessment/Plan Assessment/Plan assessment: 1. Syncope-by history, patient's equal episode is most consistent with an orthostatic episode related to position change. Whether there are any other associated issues such as autonomic neuropathy, B12 deficiency, etc. remain to be defined. By history, this does not appear to be an arrhythmia related event. 2. Proximal left humerus fracture 3. History of alcoholism 4.macrocytic anemia 5. Vitamin D deficiency Medications: -Keep the patient on monitor and storage bin tender for 24 hours -Serial troponins -Make sure that TSH, B12, etc. are checked. -Check orthostatic heart rate and blood pressure every shift 3 -Echocardiogram to rule out structural heart disease. -Further plans after the above. Consult Acknowledgment - Thank you for your consult request.
--- NOTE | 2017-11-17 05:48 | PN- Housestaff ---
See Addendum Subjective Follow-up For: Follow up for fall Complaints: no complaints Tele-Events Since Last Visit: no any overnight events Subjective: Patient is seen and examined at the bedside. She does not have any active complaints. Review of Systems Constitutional: Denies: no symptoms. Objective Last 24 Hrs of Vital Signs/I&O Vital Signs Date Time Temp Pulse Resp B/P B/P Pulse O2 O2 Flow FiO2 Mean Ox Delivery Rate 11/17 1128 77 160/88 11/17 1000 98.4 64 18 160/80 11/17 0908 85 160/80 11/17 0908 85 160/80 11/17 0905 85 160/80 11/17 0800 Room Air 11/17 0800 98.4 67 20 144/62 11/17 0709 98.4 67 20 144/62 98 Room Air 11/16 2225 70.0 70 20 140/70 99 Room Air 11/16 2143 162/92 11/16 1800 98.3 71 18 138/90 11/16 1600 98.3 66 20 138/90 11/16 1443 98.3 66 20 138/90 97 Room Air 11/16 1400 67 20 Intake & Output 11/17 1600 11/17 0800 11/17 0000 Intake Total 150 390 Output Total 200 Balance -50 390 Intake, Oral 150 390 Output, Urine 200 Physical Exam General Appearance: Alert, Oriented X3, Cooperative, No Acute Distress Cardiovascular: Normal S1, Normal S2 Lungs: Clear to Auscultation, Normal Air Movement Abdomen: Soft, No Tenderness Extremities: left upper extremeties, bluish discoloration Vascular: Normal Pulses, Pulses Symmetrical Assessment/Plan Assessment: Patient is 62 year old female with past medical history significant for gastric lymphoma status post gastric bypass, lung cancer on that admission currently on Avastin, osteoporosis, alcohol dependence, hypertension who presented to ED with chief complain of weakness fall and severe left shoulder pain. Problem list #Syncopal attack #Left shoulder comminuted fracture with mild medial and moderate anterior displacement of major distal fracture fragment #Hyponatremia #Hypertension #Alcohol dependence #Osteoporosis Assessment -vital signs shows blood pressure 160/88, temperature normal. Patient denies for any active complaints. Blood workup showed still low sodium of 133. Vitamin D level was 23, TSH was 1.570, vitamin B12 was 286. Plan * Orthopedic consultation was obtained Andrea Velasquez MD, no plans for intervention inpatient follow * Continue all home medication. * Advised to take multivit * F/u PCP with in a week of discharge. Problem List: 1. Proximal humeral fracture 2. Alcohol dependence 3. Fall 4. Hyponatremia Pain Ratin Pain Location: left shoulder Pain Goal: Remain pain free Pain Plan: n/a Tomorrow's Labs & Rationales: n/a DVT/Prophylaxis: early ambulation low risk
[2017-11-17 07:09] VITALS: BP 144/62
[2017-11-17 07:59] LABS: ABSOLUTE BASOPHIL COUNT 0 /CUMM (0.0-0.2); ABSOLUTE EOSINOPHIL COUNT 0.1 /CUMM (0.0-0.7); ABSOLUTE GRANULOCYTE CT 3.6 /CUMM (1.4-6.5); ABSOLUTE LYMPH COUNT 0.8 /CUMM (1.2-3.4); ABSOLUTE MONOCYTE COUNT 0.8 /CUMM (0.10-0.60); BASOPHIL % 0 % (0.0-2.0); EOSINOPHIL % 1.7 % (0-5); GRANULOCYTE % 68.1 % (42.2-75.2); HEMATOCRIT 33.6 % (37-47); MEAN CORPUSCULAR HGB 34.7 PG (27.0-31.0); MEAN CORPUSCULAR HGB CONC 33.5 G/DL (33.0-37.0); MEAN CORPUSCULAR VOLUME 103.8 FL (81.0-99.0); MEAN PLATELET VOLUME 8.9 FL (7.4-10.4); PLATELET COUNT 297 /CUMM (130-400); RBC DISTRIBUTION WIDTH 16.6 % (11.5-14.5); RED BLOOD CELL CT 3.24 /CUMM (4.20-5.40); WHITE BLOOD CELL COUNT 5.3 /CUMM (4.8-10.8)
[2017-11-17 08:00] VITALS: BP 144/62
[2017-11-17 09:05] VITALS: BP 160/80
[2017-11-17 10:00] VITALS: BP 160/80
[2017-11-17 11:28] VITALS: BP 160/88
--- NOTE | 2017-11-17 11:56 | Patient Discharge Instructions ---
Discharge Instructions General Discharge Information You were seen/treated for: presented with Fall and severe shoulder pain, we took cardio and orthopedics consultation advised conservative management. Special Instructions: Please follow-up with your PCP within a week of discharge. Please take all fall precautions. Diet Recommended Diet: Heart Healthy Acute Coronary Syndrome Inclusion Criteria At DC or during hospital stay patient has or had the following: ACS DIAGNOSIS No Discharge Core Measures Meds if any: Prescribed or Continued at Discharge Meds if any: NOT Prescribed or Continued at Discharge Congestive Heart Failure Inclusion Criteria At DC or during hospital stay patient has or had the following: CHF DIAGNOSIS No Discharge Core Measures Meds if any: Prescribed or Continued at Discharge Meds if any: NOT Prescribed or Continued at Discharge Cerebrovascular accident Inclusion Criteria At DC or during hospital stay patient has or had the following: CVA/TIA Diagnosis No Discharge Core Measures Meds if any: Prescribed or Continued at Discharge Meds if any: NOT Prescribed or Continued at Discharge Venous thromboembolism Inclusion Criteria VTE Diagnosis No VTE Type NONE VTE Confirmed by (Test) NONE Discharge Core Measures - Per Current guidelines, there needs to be overlap - treatment for the first 5 days of Warfarin therapy. - If discharged on Warfarin prior to 5 days of - overlap therapy, the patient will need to be - assessed for post discharge needs including - *Post discharge parental anticoagulation - *Warfarin and/or parental anticoagulation education - *Follow up date to check INR post discharge At least 5 days overlap therapy as Inpatient No Meds if any: Prescribed or Continued at Discharge Note: Overlap Therapy is Warfarin and Anticoagulant Meds if any: NOT Prescribed or Continued at Discharge
[2017-11-17] MEDS ORDERED: DAILY MULTIPLE1 EACH PO (12:07)
[2017-11-17] MEDS ORDERED: PERCOCET 5-3251 EACH PO ×2 (12:25→12:46)
--- NOTE | 2017-11-17 15:31 | PN- Cardiology ---
Subjective Subjective: Stable with no further symptoms. Objective Vital Signs and I&Os Vital Signs Date Time Temp Pulse Resp B/P B/P Pulse O2 O2 Flow FiO2 Mean Ox Delivery Rate 11/17 1128 77 160/88 11/17 1000 98.4 64 18 160/80 11/17 0908 85 160/80 11/17 0908 85 160/80 11/17 0905 85 160/80 11/17 0800 Room Air 11/17 0800 98.4 67 20 144/62 11/17 0709 98.4 67 20 144/62 98 Room Air 11/16 2225 70.0 70 20 140/70 99 Room Air 11/16 2143 162/92 11/16 1800 98.3 71 18 138/90 11/16 1600 98.3 66 20 138/90 Intake & Output 11/17 1600 11/17 0800 11/17 0000 11/16 1600 11/16 0800 11/16 0000 Intake Total 150 390 690 700 500 Output Total 200 500 Balance -50 390 190 700 500 Intake, IV 150 600 150 Intake, Oral 150 390 540 100 350 Output, Urine 200 500 Patient 102 lb Weight Weight Reported by Patient Measurement Method Current Medications: Current Medications Sig/Aminata Start time Last Medication Dose Route Stop Time Status Admin Acetaminophen 700 MG Q6P PRN 11/15 1830 DCD 11/15 N/A 1 UNIT IV 2022 Cholecalciferol 1,000 IU DAILY 11/16 1000 DCD 11/17 PO 0908 Enoxaparin Sodium 40 MG 2200 11/16 2199 DCD 11/16 SC 2140 Lisinopril 40 MG DAILY 11/16 1000 DCD 11/17 PO 0908 Lorazepam 0 Q1P PRN 11/15 1900 DCD IV Metoprolol Tartrate 25 MG BID 11/15 2199 DCD 11/17 PO 0908 Oxycodone/ 1 TAB Q4 PRN 11/15 1830 DCD 11/17 Acetaminophen PO 1241 Potassium Chloride 40 MEQ BID 11/16 2199 DC 11/17 PO 11/17 1001 0909 Results Last 48 Hrs of Labs/Mics: Laboratory Tests 11/17/17 0650: Anion Gap 10, Estimated GFR > 60, BUN/Creatinine Ratio 17.5, CBC w Diff NO MAN DIFF REQ, RBC 3.24 L, MCV 103.8 H, MCH 34.7 H, RDW 16.6 H, MPV 8.9, Gran % 68.1, Lymphocytes % 15.0 L, Monocytes % 15.2 H, Eosinophils % 1.7, Basophils % 0, Absolute Granulocytes 3.6, Absolute Lymphocytes 0.8 L, Absolute Monocytes 0.8 H, Absolute Eosinophils 0.1, Absolute Basophils 0, PUBS MCHC 33.5 11/16/17 0624: Anion Gap 15, Estimated GFR > 60, BUN/Creatinine Ratio 25.0, Vitamin B12 286, 25 -OH Vitamin D Total 23.0 L, TSH 1.570, CBC w Diff NO MAN DIFF REQ, RBC 3.13 L, MCV 104.4 H, MCH 34.8 H, RDW 16.3 H, MPV 9.1, Gran % 57.6, Lymphocytes % 32.3 , Monocytes % 9.0, Eosinophils % 0.7, Basophils % 0.4, Absolute Granulocytes 2.8 , Absolute Lymphocytes 1.5, Absolute Monocytes 0.4, Absolute Eosinophils 0, Absolute Basophils 0, PUBS MCHC 33.3 Assessment/Plan Assessment/Plan Assessment: 1. Syncope-by history, patient's equal episode is most consistent with an orthostatic episode related to position change. Whether there are any other associated issues such as autonomic neuropathy, B12 deficiency, etc. remain to be defined. By history, this does not appear to be an arrhythmia related event. 2. Proximal left humerus fracture 3. History of alcoholism 4.macrocytic anemia 5. Vitamin D deficiency Medications: -From a cardiac standpoint, the patient should be stable for discharge -Serial troponins have been negative -Make sure that TSH, B12, etc. are checked. -Orthostatic heart rate and blood pressure have been normal -Echocardiogram pending. If necessary, this can be performed as an outpatient. -The patient will follow-up with me in the office post discharge. -In view of the patient's B12 level of 286 and in view of the patient's symptoms , I would consider instituting B12 supplementation therapy. Continue telemetry? No
--- NOTE | 2017-11-17 22:05 | PN- Orthopedic ---
Surgical Brief Attending Note Brief Attending Note: Patient seen by Dr. Velasquez as urgent inpatient consultation at the request of her primary admitting medical team and supervising attending physician (Dr. Barksdale) on 11/16/2017 @ 09:30 AM: History Of Present Illness: Dayami Levy is a 62 year old left-handed white female admitted following a syncopal episode and fall probably related to alcohol dependence. The fall occurred in the middle of the night when she got up from bed to go to the bathroom. She is uncertain of the exact cause or mechanism. She does not recall the incident which is the reason that this is being evaluated as a syncopal episode. She presumably fell from a standing height on her buttock and left shoulder. It is uncertain whether she landed on her outstretched hand or elbow but did likely impact her lateral shoulder and left buttock as these two areas are ecchymotic and tender (although the shoulder changes could also be from an impaction mechanism without direct impact). She denies any other areas of impact, pain or tenderness. She does report that she had a similar fall a few weeks ago and had radiographs diagnosing a mild L1 compression fracture but this has not been particularly painful or limiting and she reports no exacerbated back pain from this second fall. Alcohol consumption (in the range of a pint of Vodka per day) likely contributed to both incidents. She now complains mostly of left shoulder pain with any motion or significant muscular activity above the wrist level. Her sensorium is clear and she does not appear to be undergoing withdrawal. She is in a sling which is helping control motion and pain but lacks a torso strap and therefore is not sufficiently immobilizing to optimally control her symptoms. She denies neurovascular symptoms. She denies neck pain or radiation. Syncopal workup is ongoing. Additional details regarding her history and inpatient syncope workup are available in the primary admittting medical service notes. Refer to those notes for details. This history obviously impacts her orthopaedic prognosis and therefore recommendations for noninvasive versus closed reduction versus open treatment for her fracture but, given the patient's immediate decision to proceed with closed treatment without reduction, further review of details of this history are deferred to her primary medical team. They can be included in greater detail as part of her orthopaedic history laetr shoulde she decide to consider other treatment options that would necessitate that correlation of history. Her decision to proceed with closed treatment was made with good understanding and acceptance of risks and benefits particularly regarding range of motion and functional changes which will likely be more noticeable given that the fracture and moderate malalignment involves her dominant upper extremity. This decision was very appropriately made in conjunction with her who was present for the discussion. Detailed Physical Examination: A standardized detailed orthopaedic care consultation examination was performed. Detailed Neurological And Musculoskeletal Left Shoulder And Survey General Trauma Physical Examination: The patient was cooperative, responded appropriately and followed instructions without difficulty throughout the examination. He was not significantly sedated or otherwise limited by medication or other treatments. On initial physician visual evaluation of the patient upon entering the room, she is found laying in a comfortable position her head of bed raised and her left arm in a sling. She appears comfortable at rest but had considerable pain with any motion of the left upper extremity. Her left shoulder was ecchymotic and tender to palpation. There was no tenderness in any other spinal, torso or extremity musculoskeletal region. In this case, no further global musculoskeletal trauma assessment was required or performed. Her left upper extremity was grossly neurovascularly intact except for 4/5 left finger extension not lmited significantly by pain. She does not recall having this weakness previously and it may represent contusion, compression or stretch injury at the shoulder. Her wrist extension is normal but assessment of wrist flexion is limited by severe shoulder pain and so neurological weakness cannot be ruled out in addition. Biceps, triceps and rotator cuff function could obviously not be assessed due to pain although she appears to have at least antigravity function in each group. No sensory defict. Neck range of motion is grossly normal without radiating shoulder, arm or other pain even at the extremes of motion. Right shoulder motion and function is grossly normal. Right motor testing shows 5/5 strength with clear 5/5 strength in finger extension suggesting a clear asymmetry and possible deficit on the left particularly given that it is her dominant side. This will be monitored and may require additional therapy for optimal recovery once her fractuure is healed. She understands and accepts that this may be a permanent deficit regardless of treatment chosen. Radiologic Studies: Left shoulder series was reviewed from admitting radiologic assessment. The humeral neck fracture is only minimally comminuted and overall well aligned without significant angulation. The shaft and metaphyseal flare of the distal component is displaced both anteriorly and laterally by approximately 25% of the humeral diameter. The patient understands that healing in this translated but only minimally angulated position will likely result in noticeable and possibly significant limitation of motion and could cause impingement. She and her have very appropriately accepted this eventuality and other potential complications and have chosen closed management. Asssessment/Plan: Dayami Levy is a 62 year old left-handed white female who fell during a syncopal episode likely caused by heavy alcohol consumption and sustained a reasonably well aligned but moderately translated humeral neck fracture. She has very appropriately elected closed management without reduction or fixation. She understands and accepts the potential outcomes associated with this fracture and the treatment course chosen particularly given the involvement of the dominant upper extremity. This is quite reasonable particularly given the increased risks associated with her alcohol history and recent syncopal episode. She understands that her motor neurological deficit can only be partially assessed currently and may persist even after optimal closed fracture healing. She will likely require additional (both occupational and physical) rehabilitative therapy once she has passed the initial phase of healing. Thank you for consulting Dr. Velasquez and [facility] regarding Ms. Levy and her left shoulder orthopaedic condition. The orthopaedic consultation service will sign off at this point as her condition is stable and no further inpatient assessment or treatment is required. She should remain in the sling with torso immobilizing strap at all times except for hygiene and brief breaks with the arm in the supported neutral position ( identical to position in the sling). She should wear the sling for sleep until cleared to wean its use after initial outpatient evaluation. She can followup in 2 weeks to begin gentle pendulum exercises. Please do not hesitate to contact the hospitalist surgical team or Dr. Velasquez directly for any questions or concerns regarding the inpatient or subsequent outpatient care of her fracture.
--- NOTE | 2017-11-18 17:13 | Discharge Summary ---
Visit Information Visit Dates Admission Date: 11/15/17 Discharge Date: 11/17/17 Hospital Course Course Attending Physician: Elvie Barksdale MD Primary Care Physician: Betty HOLLIDAY,Manuel Polanco Hospital Course: The patient is a 62-year-old female with past medical history of gastric lymphoma status post partial gastrectomy, recurrent lung cancer on Avastin, alcoholism and osteoporosis. The patient presented to [facility] ED on 11/15 with complaint of fall in the middle of the night when she got up from bed to go to the bathroom, after heavy alcohol consumption ED workup -VS at presentation 97, 64, 18, 169/92, 98% on room air -Pertinent labs H/H 11.8/34.6, MCV 101, sodium 127, AST 76. Rest of LFTs WNL, K and Mg WNL, serum alcohol level less than 10 -XR SHOULDER, LEFT IMPRESSION: Comminuted fracture of the left proximal humerus with displacement -CT HEAD WITHOUT IV CONTRAST and CT CERVICAL SPINE WITHOUT IV CONTRAST IMPRESSION: 1. No acute intracranial abnormality. Mild chronic microangiopathy and global cerebral volume loss. 2. No acute osseous abnormality within the cervical spine. Cervical spondylosis as described. -The patient was admitted to telemetry floor and was treated and evaluated for following conditions. #Witnessed Fall due to syncopal episode Cardiology consulted. Possible differentials included secondary to alcoholism, metabolic encephalopathy secondary to hyponatremia, orthostatic or cardiogenic. There was possibility of remote CVA considering mild nasolabial flattening on the left side as per patient it is chronic. Rest of the neurological examination was within normal limits. CT head negative. Patient was on continuous telemetry monitoring for any arrhythmia, none noted. Her presentation was consistent with an orthostatic episode related to position change as per cardiology -Orthostatic heart rate and blood pressure have been normal -Echocardiogram pending -Patient will follow up with cardiology as an outpatient. #Comminuted fracture of the left proximal humerus with displacement secondary to fall Ortho lactation consultant. Patient opted for closed management without reduction or fixation. -As per orthopedic recommendations she should remain in the sling with torso immobilizing strap at all times except for hygiene and brief breaks with the arm in the supported neutral position (identical to position in the sling). She should wear the sling for sleep until cleared to wean its use after initial outpatient evaluation. -Patient will follow up with orthopedics in 2 weeks to begin gentle pendulum exercises. #Chronic alcohol abuse: Patient admits drinking alcohol 1 pint vodka daily. Last drink was evening before admission. She was started on Ativan per [facility] protocol. -Patient will require extensive counseling and follow-up for alcohol abstinence #Hyponatremia likely secondary to chronic alcohol abuse. Improving. We monitored patient's BEP and she was counseled on fluid restriction and alcohol abstinence -Monitor BEP #Megaloblastic anemia likely secondary to chronic alcohol abuse. Patient presented with increased MCV. She was extensively counseled on alcohol abstinence, her B12 level was 286 and patient was started on multivitamin/B12 supplementation. -Continue B12 supplementation #Hypertension likely secondary to Avastin use. Patient has been complaining of headaches and blurriness of vision which can be attributed to that as well. -Continue metoprolol and lisinopril at home doses. #Patient was full code during her stay. Allergies: Uncoded Allergies: CT IODINE CONTRAST (HIVES 11/15/17) Disposition Summary Disposition Principal Diagnosis: Witnessed Fall due to syncopal episode likely secondary to orthostatic hypotension Additional Diagnosis: Comminuted fracture of the left proximal humerus with displacement secondary to fall Discharge Disposition: home or self care Discharge Instructions General Discharge Information Code Status: Full Code Patient's Diet: Heart healthy Patient's Activity: As tolerated Follow-Up Instructions/Appts: Please follow-up with your PCP within a week of discharge. Please take all fall precautions. Follow-up with orthopedics as an outpatient. Medications at Discharge Discharge Medications: Continue taking these medications: Lisinopril (Lisinopril) 40 MG TABLET 1 Tablet ORAL DAILY Qty = 30 Comments: Last Taken: 11/17/17 Time: 9AM Zolpidem Tartrate (Zolpidem Tartrate) 10 MG TABLET 1 Tablet ORAL Every night Qty = 30 Comments: NOT GIVEN IN HOSPITAL Alprazolam (Alprazolam) 0.5 MG TABLET 1 Tablet ORAL 2 x Daily as needed as needed for ANXIETY Qty = 90 Comments: NOT GIVEN IN HOSPITAL Metoprolol Tartrate (Metoprolol Tartrate) 25 MG TABLET 1 Tablet ORAL TWICE DAILY Qty = 60 Comments: Last Taken: 11/17/17 Time: 9AM Start taking the following new medications: Oxycodone HCl/Acetaminophen (Percocet 5-325 MG Tablet) 5 MG-325 MG TABLET 1 Tablet ORAL Every 4 hours as needed for PAIN SCALE 7-10 (SEVERE) Qty = 20 No Refills Comments: Last Taken: 11/17/17 Time: 8AM Multivitamin (Daily Multiple Vitamin) 1 EACH TABLET 1 Tablet ORAL DAILY Qty = 30 No Refills Comments: NOT GIVEN IN HOSPITAL Copies To: Betty HOLLIDAY,Manuel Polanco Attending MD Review Statement Documenting Attending: Elvie Barksdale MD
== END 2017-11-17 13:17 | DRG 312 ==
LOC: ERH 11:53 → ERHI 17:08 → ENRESERV 17:51 → ENTRNSPT 19:01 → 1NO 19:19 → CMPTRNSPT 19:26 → 1NO 11-16 09:31 → ENPENDDIS 11-17 12:09 → ENTRNSPT 11-17 12:33 → 1NO 11-17 13:17 → CMPTRNSPT 11-17 13:53
PROVIDERS: Physician Assistant; Student in an Organized Health Care Education/Training Program
DX: R55 Syncope and collapse (principal); D53.1 Other megaloblastic anemias, not elsewhere classified; C34.90 Malignant neoplasm of unspecified part of unspecified bronchus or lung; E87.1 Hypo-osmolality and hyponatremia; S42.202A Unspecified fracture of upper end of left humerus, initial encounter for closed fracture; W18.30XA Fall on same level, unspecified, initial encounter; Y92.009 Unspecified place in unspecified non-institutional (private) residence as the place of occurrence of the external cause; I10 Essential (primary) hypertension; F10.20 Alcohol dependence, uncomplicated; E55.9 Vitamin D deficiency, unspecified; M81.0 Age-related osteoporosis without current pathological fracture; Y90.0 Blood alcohol level of less than 20 mg/100 ml; Z87.891 Personal history of nicotine dependence; Z85.72 Personal history of non-Hodgkin lymphomas
CPT/HCPCS: 1NSP; 36415; 73030-LT; 82436; 93005; 93010; G0480; J0131; J1644; J1650